=== PATIENT | male | born 1995 | race Caucasian/White ===

== ENCOUNTER 2016-06-30 21:41 | Emergency (ER) | payer BC ==
[~2016-06-30] VITALS: Ht 180.3 cm; Wt 87.2 kg
[2016-06-30 21:58] VITALS: TEMP 36.9; Ht 180.3 cm; Wt 87.2 kg
[2016-06-30] MEDS ORDERED: AMPH20CA3 PO (22:26)
[2016-06-30] MEDS ORDERED: SODIUM CHLORIDE 0.9% 1000ML 1,000 ML IV STA (22:47)
[2016-06-30 23:22] LABS: BASO % 0.7 %; BASO ABS # 0.05 K/uL (0-0.2); COMPLETE YES; EOS % 2.2 %; HEMATOCRIT 43.8 % (42-52); IG% 0.1 %; LYMPH % 42.4 %; LYMPH ABS # 3.23 K/uL (1.2-3.4); MEAN CELL VOLUME 84.6 fL (80-100); MEAN CORPUSCULAR HEMOGLOBIN 29.3 pg (25-34); MEAN CORPUSCULAR HGB CONC 34.7 g/dl (32-36); NEUT % 43.6 %; PLATELET COUNT 240 K/uL (130-400); RED BLOOD COUNT 5.18 M/uL (4.7-6.1); WHITE BLOOD COUNT 7.61 K/uL (4.8-10.8)
[2016-06-30 23:48] LABS: BUN/CREATININE RATIO 18.1 (10-20); CALCIUM 9.1 mg/dl (8.5-10.1); CREATININE 1.2 mg/dl (0.60-1.40); POTASSIUM 3.6 mmol/L (3.5-5.1)
[2016-07-01] MEDS ORDERED: GADAVIST IV PRN (00:45)
[2016-07-01 01:00] VITALS: BP 138/85; PULSE 95; O2SAT 98
--- NOTE | 2016-07-01 01:58 | EMERGENCY ROOM VISIT NOTE ---
History Report prepared by García: Marii De Anda Under the Supervision of: Dr. John Gonzalez M.D. First contact with patient: 22:37 Chief Complaint: OTHER COMPLAINT Stated Complaint: LOSS OF L EYE PERIPHERAL VISION,MIGRANE,TUNNEL VIS History of Present Illness The patient is a 20 year old male who presents to the Emergency Room with complaints of an episode of visual symptoms occurring 1.5 hours ago. He was reading something on his phone when his symptoms began. He lost peripheral vision in his left eye. He states that "it felt like I had a blind spot." He had trouble focusing on what he was looking at and he had trouble reading while his symptoms lasted. He states that his visual symptoms resolved on their own after about 20 minutes. He had some unsteadiness with this episode and describes feeling "off balance" but was able to walk. He is currently experiencing a headache on the right side of his head. He describes his pain as dull with an occasional sharp pain. He rates his pain as a 3/10 in severity. Light, sound, and smell do not exacerbate his symptoms. He denies any personal or family history of migraine headaches. The patient denies fever, numbness, weakness, trouble speaking, trouble swallowing, and any recent trauma or head injury. He notes a rash on his abdomen that he has had for over a year. Source of History: patient Onset: 1.5 hours ago Position: eye (left) Symptom Intensity: 3/10 Quality: other (blind) Timing: other (episode) Modifying Factors (Relieving): other (time) Associated Symptoms: + headache, + rash, No fevers, No numbness, No weakness Note: The patient denies trouble speaking, trouble swallowing, and any recent trauma or head injury. Review of Systems See HPI for pertinent positives & negatives. A total of 10 systems reviewed and were otherwise negative. Past Medical & Surgical Medical Problems: (1) No significant active problems Family History Cancer Diabetes mellitus Social History Smoking Status: Never Smoker Smokeless Tobacco Use: No Alcohol Use: occasionally Housing Status: lives with roommate Occupation Status: employed Current/Historical Medications Scheduled PRN Amphetamine-Dextroamphetamine 20MG (Adderall Xr 20MG), 20 MG PO DAILY PRN for Allergies Coded Allergies: Penicillins (Verified Allergy, Unknown, AVOIDS DUE TO FAMILY HX, 06/30/16) Physical Exam Vital Signs Date Time Temp Pulse Resp B/P Pulse Ox O2 Delivery O2 Flow Rate FiO2 07/01/16 01:00 95 16 138/85 98 Room Air 06/30/16 23:35 66 06/30/16 23:31 76 16 106/60 98 Room Air 06/30/16 23:03 65 06/30/16 23:01 0 06/30/16 23:01 37 06/30/16 23:00 88 06/30/16 21:58 36.9 67 18 138/80 97 Room Air Physical Exam Constitutional: Vital signs reviewed. Eyes: Pupils are equal round reactive to light. Conjunctiva are noninjected. ENT: Pharynx is clear without erythema or exudate. Mucous membranes are moist. Neck supple without meningeal signs. Respiratory: Clear to auscultation bilaterally. Breath sounds are equal bilaterally. Cardiovascular: Regular rate and rhythm. No rubs or gallops. GI: Soft, nondistended and nontender. Bowel sounds are present. Musculoskeletal: No peripheral edema. No lower extremity tenderness. Integumentary: No cyanosis.Scattered diffuse oval dark lesions to the trunk. No bullae or vessels. Neurological: The patient is awake and alert. Cranial nerves II-XII are intact. Motor is 5 out of 5 all extremities. Sensation is intact to light touch all extremities. Normal speech. Normal gait. No pronator drift. No dysdiadochokinesis. No limb ataxia. Normal visual kern by confrontation. Psychiatric: Normal affect. Medical Decision & Procedures ER Provider Diagnostic Interpretation: Radiology results as stated below per my review and the radiologist's interpretation: MRI HEAD: No evidence of acute infarct or intracranial mass. No abnormal parenchymal signal, enhancement, or intracranial hemorrhage. Small retention cyst left maxillary sinus. Radiologist: Nicolas Torres MD. Laboratory Results 06/30/16 23:05 Red Blood Count 5.18, Mean Corpuscular Volume 84.6, Mean Corpuscular Hemoglobin 29.3, Mean Corpuscular Hemoglobin Concent 34.7, Mean Platelet Volume 10.0, Neutrophils (%) (Auto) 43.6, Lymphocytes (%) (Auto) 42.4, Monocytes (%) (Auto) 11.0, Eosinophils (%) (Auto) 2.2, Basophils (%) (Auto) 0.7, Neutrophils # (Auto ) 3.31, Lymphocytes # (Auto) 3.23, Monocytes # (Auto) 0.84, Eosinophils # (Auto ) 0.17, Basophils # (Auto) 0.05 06/30/16 23:05 Test 06/30/16 23:05 White Blood Count 7.61 K/uL (4.8-10.8) Red Blood Count 5.18 M/uL (4.7-6.1) Hemoglobin 15.2 g/dL (14.0-18.0) Hematocrit 43.8 % (42-52) Mean Corpuscular Volume 84.6 fL (80-100) Mean Corpuscular Hemoglobin 29.3 pg (25-34) Mean Corpuscular Hemoglobin Concent 34.7 g/dl (32-36) Platelet Count 240 K/uL (130-400) Mean Platelet Volume 10.0 fL (7.4-10.4) Neutrophils (%) (Auto) 43.6 % Lymphocytes (%) (Auto) 42.4 % Monocytes (%) (Auto) 11.0 % Eosinophils (%) (Auto) 2.2 % Basophils (%) (Auto) 0.7 % Neutrophils # (Auto) 3.31 K/uL (1.4-6.5) Lymphocytes # (Auto) 3.23 K/uL (1.2-3.4) Monocytes # (Auto) 0.84 K/uL (0.11-0.59) Eosinophils # (Auto) 0.17 K/uL (0-0.5) Basophils # (Auto) 0.05 K/uL (0-0.2) RDW Standard Deviation 37.1 fL (36.4-46.3) RDW Coefficient of Variation 12.1 % (11.5-14.5) Immature Granulocyte % (Auto) 0.1 % Immature Granulocyte # (Auto) 0.01 K/uL (0.00-0.02) Anion Gap 9.0 mmol/L (3-11) Est Creatinine Clear Calc Drug Dose 102.8 ml/min Estimated GFR () 98.9 Estimated GFR (Non- 85.3 BUN/Creatinine Ratio 18.1 (10-20) Calcium Level 9.1 mg/dl (8.5-10.1) Laboratory results as reviewed by me. Medications Administered Medications (Trade) Dose Ordered Sig/Lauryn Route Start Time Stop Time Status Last Admin Dose Admin Sodium Chloride (Nss 1000ml) 1,000 ml @ 999 mls/hr Q1H1M STAT IV 06/30/16 22:47 06/30/16 23:47 DC 06/30/16 22:47 999 MLS/HR ECG Indication: other Rate (beats per minute): 77 Rhythm: normal sinus Findings: no acute ischemic change, no ectopy ED Course 2236: The patient was evaluated in room A12B. A complete history and physical exam was performed. 224: NSS 1000 ml @ 999 mls/hr IV 2309: The patient had a vagal episode while the nurses were putting in an IV. He had a short sinus pause but he did not pass out. 0101: I reassessed the patient. He is feeling better and I updated him on the results. I am still waiting for the MRI results. 0129: I reassessed the patient at this time. He is feeling better and resting comfortably. I discussed the results and treatment plan with the patient. I answered all pertaining questions that he had. He expressed understanding and verbalized agreement. The patient will be discharged home. Medical Decision This is a 20-year-old male who presents with a headache and visual disturbance. Differential diagnosis includes migraine headache, ocular migraine, intracranial mass, intracranial hemorrhage, CVA. I did perform a limited focused review of portions of the patient's old chart on the electronic medical record. The patient has had no recent pertinent visits to this hospital. I did evaluate the patient as noted above. The patient is presenting with visual disturbance which resolved and followed by a headache. He has no prior history of migraine. He is neurologically intact at this time. IV access was established. I did treat the patient with normal saline IV. I did order and personally review the patient's 12-lead EKG as described above. I did order and review the patient's blood work as noted in the electronic medical record. I did order an MRI of the brain. I did review the images myself as well as the radiology report as described above. There is no evidence of CVA, mass or bleed. I did reassess the patient. He is feeling better at this time. I did discuss the test results with the patient. He was advised follow closely with a regular physician for further evaluation. Regarding his rash he was advised to try nilo-sva-paudliq antifungal cream. He was told by his prior doctor that his rash appeared to be fungal as well. 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 He was discharged in good condition and given return instructions as outlined below. Impression Primary Impression: Headache Additional Impressions: Visual disturbance Rash Scribe Attestation The scribe's documentation has been prepared under my direct and personally reviewed by me in its entirety. I confirm that the note above accurately reflects all work, treatment, procedures, and medical decision making performed by me. Departure Information Dispostion Home / Self-Care Referrals [facility] Forms HOME CARE DOCUMENTATION FORM, IMPORTANT VISIT INFORMATION, WORK / SCHOOL INSTRUCTIONS Patient Instructions Headache Pain, My [facility] Additional Instructions You have been examined and treated today on an emergency basis only. This is not a substitute for, or an effort to provide, complete comprehensive medical care. It is impossible to recognize and treat all injuries or illnesses in a single emergency department visit. It is therefore important that you follow up closely with your physician. Call as soon as possible for an appointment. Return for worsening symptoms or if you develop fever, vomiting, numbness or weakness on one side of your body, or any other concerning symptoms. Problem Qualifiers Primary Impression: Headache Headache type: unspecified Headache chronicity pattern: acute headache Intractability: not intractable Qualified Codes: R51 - Headache
--- NOTE | 2016-07-01 07:06 | DIAGNOSTIC IMAGING REPORT ---
MRI OF THE BRAIN COMBO CLINICAL HISTORY: Vision loss. Headache. COMPARISON STUDY: No priors. TECHNIQUE: MRI of the brain was performed utilizing various T1 and T2-weighted sequences in the axial, sagittal, and coronal planes. Contrast-enhanced sequences were acquired following the administration of 8 cc of Gadavist. FINDINGS: Brain parenchyma: The brain parenchyma is normal in appearance. There is no hemorrhage or mass effect. There is no restricted diffusion to suggest acute ischemia. No enhancing mass lesion is identified on the postcontrast images. Contreras-white matter differentiation is preserved. No extra-axial fluid collection is seen. The cerebellar tonsils are normal in configuration. Ventricles, sulci, and cisterns: Normal in configuration. Pituitary and sella: Unremarkable. Intracranial vasculature: Normal flow voids are maintained at the skull base. Orbits: The bony orbits are grossly intact. Orbital contents are normal in appearance. Sinuses and mastoids: Clear. Calvarium: Unremarkable. Cervical cord: Partially visualized cervical spinal cord is normal in morphology and signal intensity. IMPRESSION: No acute intracranial abnormality. Electronically signed by: Los Chapman M.D. 07/01/2016 7:05 AM Dictated Date/Time: 07/01/2016 7:03 AM
== END 2016-07-01 01:37 | disposition home or self-care (01) ==
LOC: C.EDB 21:43 → C.EDA 07-01 01:37
DX: R51 Headache (principal); H53.9 Unspecified visual disturbance; R21 Rash and other nonspecific skin eruption; Z83.3 Family history of diabetes mellitus